=== PATIENT | male | born 1985 | race Caucasian/White ===

== ENCOUNTER 2017-01-20 02:03 | Emergency (ER) | payer SELFPAY ==
[2017-01-20] MEDS ORDERED: ACET325T33 PO (04:37)
== END 2017-01-20 02:05 | disposition left against medical advice (07) ==
LOC: E/R 02:03
DX: Z53.21 Procedure and treatment not carried out due to patient leaving prior to being seen by health care provider (principal)

== ENCOUNTER 2017-01-20 03:14 | Emergency (ER) | payer SELFPAY ==
[~2017-01-20] VITALS: Ht 180.3 cm; Wt 71.0 kg
[2017-01-20 03:21] VITALS: Ht 180.3 cm; Wt 71.0 kg
[2017-01-20] MEDS ORDERED: IBUPROFEN 200 MG TAB PO ONE (04:00)
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
[2017-01-20] MEDS ORDERED: ACET325T33 PO (04:37)
== END 2017-01-20 04:48 | disposition home or self-care (01) ==
LOC: FTE 03:14
DX: S29.9XXA Unspecified injury of thorax, initial encounter (principal); W22.8XXA Striking against or struck by other objects, initial encounter; Y92.9 Unspecified place or not applicable
CPT/HCPCS: 71100

== ENCOUNTER 2017-04-29 20:13 | Emergency (ER) | payer OTHER ==
[~2017-04-29] VITALS: Ht 180.3 cm; Wt 75.0 kg
[~2017-04-29 20:13] MED LIST: ACET325T33 PO
[2017-04-29 20:20] VITALS: Ht 180.3 cm; Wt 75.0 kg
[2017-04-29] MEDS ORDERED: FENTAnyl 50 MCG/ML VIAL IV ONE (20:30)
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
--- NOTE | 2017-04-29 22:10 | RADRPT ---
PROCEDURE: XR Knee. CLINICAL INDICATION: Dislocation TECHNIQUE: Three views of the left knee are available for review. COMPARISON: None available FINDINGS: There is no acute fracture or dislocation. The joint spaces are maintained. No significant joint e ffusion is present. The soft tissues are unremarkable. RPTAT: BLANCA IMPRESSION: No acute bony abnormality. .Yesi Workman MD, MD Date Time Electronically viewed and signed by .Ysei Workman MD, on 04/29/2017 22:10 .T/
[2017-04-29 22:15] VITALS: BP 141/95; PULSE 92; RESP 17; TEMP 98.2
== END 2017-04-29 22:15 | disposition home or self-care (01) ==
LOC: E/R 20:13
DX: S83.005A Unspecified dislocation of left patella, initial encounter (principal); V18.4XXA Pedal cycle driver injured in noncollision transport accident in traffic accident, initial encounter
CPT/HCPCS: 27550; 73562; 96374; J3010; Z7502